=== PATIENT | male | born 1935 | race Caucasian/White ===

== ENCOUNTER 2018-06-24 07:59 | Emergency (ER) | payer MEDICARE ==
--- NOTE | 2018-06-24 08:09 | PDOC ---
History of Present Illness - General Chief Complaint: Pain Stated Complaint: KNEE PAIN Time Seen by Provider: 06/24/18 08:07 History Source: Patient Exam Limitations: No Limitations - History of Present Illness Initial Comments: CHIEF COMPLAINT: HISTORY OF PRESENT ILLNESS: Vital signs on arrival are within normal limits. REVIEW OF SYSTEMS: GENERAL/CONSTITUTIONAL: No fever MUSCULOSKELETAL: No joint or muscle swelling or pain. No neck or back pain. SKIN: No rash or easy bruising. NEUROLOGIC: No headache, vertigo, loss of consciousness, or loss of sensation. PHYSICAL EXAM: VITAL_SIGNS: within normal limits GENERAL_APPEARANCE: alert, cooperative, mild obvious discomfort. MENTAL_STATUS: speech clear, oriented X 3, responds appropriately to questions. NEURO: motor intact and sensory intact in injured extremity. EXTREMITIES: good pulse in injured extremity, affected area on extremity has mild erythema, mild swelling, mild tenderness and no abrasions\lacerations. SKIN: warm, dry, good color. Past History - Past Medical History Allergies/Adverse Reactions: Allergies Allergy/AdvReac Type Severity Reaction Status Date / Time No Known Allergies Allergy Verified 06/24/18 08:06 Home Medications: Ambulatory Orders Amlodipine Besylate [Norvasc -] 10 mg PO DAILY 10/21/13 Aspirin [ASA -] 81 mg PO DAILY 10/21/13 Carvedilol [Coreg] 25 mg PO BID 10/21/13 Levothyroxine [Synthroid -] 50 mcg PO DAILY 10/21/13 Losartan/Hydrochlorothiazide [Losartan-Hctz 100-25 mg Tab] 1 each PO DAILY 10/21 Simvastatin [Zocor -] 20 mg PO HS 10/21/13 metFORMIN XR [Glucophage Xr -] 500 mg PO DAILY 10/21/13 Meclizine HCl [Antivert -] 12.5 mg PO TID #21 tablet 10/22/13 COPD: No Diabetes: Yes HTN: Yes Hypercholesterolemia: Yes Thyroid Disease: Yes - Suicide/Smoking/Psychosocial Hx Smoking History: Never smoked Have you smoked in the past 12 months: No Hx Alcohol Use: No Drug/Substance Use Hx: No Substance Use Type: None Hx Substance Use Treatment: No *Physical Exam - Vital Signs Last Vital Signs Temp Pulse Resp BP Pulse Ox 98.6 F 76 18 141/63 99 06/24/18 08:00 06/24/18 08:00 06/24/18 08:00 06/24/18 08:00 06/24/18 08:00 Medical Decision Making - Medical Decision Making A/P: *DC/Admit/Observation/Transfer - Referrals Referrals: Scott Loya MD [Primary Care Provider] - - Patient Instructions - Post Discharge Activity
[2018-06-24 08:13] VITALS: BMI 21.6
--- NOTE | 2018-06-24 08:54 | PDOC ---
Attending Attestation - HPI HPI: 06/24/18 10:06 The patient is a 82 year old male with a significant PMH of hypertension, diabetes, and hypothyroidism who presents to the emergency department with left leg pain for 3 weeks. The patient reports that he was in bed last night when his left leg pain woke him up out of his sleep. He describes his pain as greater than 10/10 in severity and is worsened with walking. He states that he saw his PCP (Dr Loya) regarding this pain when it first onset by which he was prescribed medication and several tests were performed. The patient denies taking anything for pain. He denies any recent trauma, injury, travel or surgery. He denies any fever, chills, nausea, vomiting, diarrhea, constipation or urinary symptoms. He denies any chest pain, shortness of breath, headache or dizziness. The patient denies any other complaints. PCP: Dr. Loya Documentation prepared by Sixto Emerson, acting as medical doctor nuclear medicine for Rylie Yanes MD. <Sixto Emerson - Last Filed: 06/24/18 10:06> - Resident Resident Name: Rylie Garza - ED Attending Attestation I have performed the following: I have examined & evaluated the patient, The case was reviewed & discussed with the resident, I agree w/resident's findings & plan, Exceptions are as noted - Physicial Exam PE: GENERAL: Awake, alert, and fully oriented, in no acute distress HEAD: No signs of trauma EYES: PERRLA, EOMI, sclera anicteric, conjunctiva clear ENT: Auricles normal inspection, hearing grossly normal, nares patent, oropharynx clear without exudates. Moist mucosa NECK: Normal ROM, supple, no lymphadenopathy, JVD, or masses LUNGS: Breath sounds equal, clear to auscultation bilaterally. No wheezes, and no crackles HEART: Regular rate and rhythm, normal S1 and S2, no murmurs, rubs or gallops ABDOMEN: Soft, nontender, normoactive bowel sounds. No guarding, no rebound. No masses EXTREMITIES: Normal range of motion, no edema. No clubbing or cyanosis. No cords, erythema, or tenderness. Dec DP pulse on R, very faint DP pulse on L side. No pallor. Normal cap refill. NEUROLOGICAL: Cranial nerves II through XII grossly intact. Normal speech. Motor and sensation intact. SKIN: Warm, Dry, normal turgor, no rashes or lesions noted. - Medical Decision Making Pt presenting with claudication, worsening, now occurs with minimal ambulation. He had an arterial doppler as outpatient, results have not been given to Dr. Loya yet. Arterial doppler obtained in ED, signs of arterial disease. Will obtain CTA and d/w vascular. <Rylie Yanes - Last Filed: 06/24/18 12:45>
--- NOTE | 2018-06-24 08:56 | PDOC ---
History of Present Illness - General Chief Complaint: Pain Stated Complaint: KNEE PAIN Time Seen by Provider: 06/24/18 08:07 - History of Present Illness Initial Comments: 82yo with history of HTN, DM, HLD, and thyroid disorder presenting with left leg pain. Patient states the pain has been going on for three weeks and has gradually gotten worse to the point that it woke him up from his sleep at 2am this morning. The pain is rated 11/10 and worsens when the patient moves his legs or ambulates a couple steps. He saw his primary care physician, Dr. Loya , three weeks ago who ordered an ultrasound test. The patient received a call that a follow-up test was required and that he should go to the office on Monday, but was not informed of the ultrasound result. He was also started on Baclofen 10mg which he has been taking and says does not work. Patient has not taken anything else for pain. No hemoptysis, no recent surgical history, no recent mobilization, no hormone use, no history of DVT or PE. Denies history of gout. He is not sure if he has arthritis. Has never seen a vascular specialist. No fevers, chills, chest pain, or abdominal pain. Past History - Past Medical History Allergies/Adverse Reactions: Allergies Allergy/AdvReac Type Severity Reaction Status Date / Time No Known Allergies Allergy Verified 06/24/18 08:06 Home Medications: Ambulatory Orders Amlodipine Besylate [Norvasc -] 10 mg PO DAILY 10/21/13 Aspirin [ASA -] 81 mg PO DAILY 10/21/13 Carvedilol [Coreg] 25 mg PO BID 10/21/13 Levothyroxine [Synthroid -] 88 mcg PO DAILY 10/21/13 metFORMIN XR [Glucophage Xr -] 500 mg PO DAILY 10/21/13 Atorvastatin Ca [Lipitor] 40 mg PO HS 06/24/18 Baclofen [Lioresal -] 10 mg PO DAILY 06/24/18 Calcium Citrate [Calcitrate] 950 mg PO DAILY 06/24/18 Cetirizine HCl [Zyrtec -] 10 mg PO DAILY 06/24/18 Clopidogrel Bisulfate [Plavix -] 75 mg PO DAILY 06/24/18 Ergocalciferol (Vitamin D2) [Drisdol] 50,000 unit PO WEEKLY 06/24/18 Fluticasone Prop 0.05% Nasal [Flonase -] 1 - 2 spray NS DAILY 06/24/18 Olmesartan/Hydrochlorothiazide [Olmesartan-Hctz 40-12.5 mg Tab] 1 each PO DAILY 06/24/18 Pitavastatin Calcium [Livalo] 4 mg PO DAILY 06/24/18 Vitamin B Complex 1 each PO DAILY 06/24/18 COPD: No Diabetes: Yes HTN: Yes Hypercholesterolemia: Yes Thyroid Disease: Yes - Suicide/Smoking/Psychosocial Hx Smoking History: Never smoked Have you smoked in the past 12 months: No Hx Alcohol Use: No Drug/Substance Use Hx: No Substance Use Type: None Hx Substance Use Treatment: No Review of Systems - Review of Systems Comments:: Constitutional: no fever, no chills HEENT: no throat pain, no dysphagia Cardiovascular: no chest pain, no palpitations Respiratory: no cough, no shortness of breath Gastrointestinal: no abdominal pain, no nausea, no vomiting, no diarrhea, no constipation Genitourinary: no dysuria, no frequency Musculoskeletal: no right leg pain, +left leg pain Skin: no rash, no itching Neurologic: no headache, no dizziness *Physical Exam - Vital Signs Last Vital Signs Temp Pulse Resp BP Pulse Ox 98.6 F 76 18 141/63 99 06/24/18 08:00 06/24/18 08:00 06/24/18 08:00 06/24/18 08:00 06/24/18 08:00 - Physical Exam Comments: General: Awake, alert, and fully oriented, in no acute distress Head: No signs of trauma Eyes: EOMI, sclera anicteric ENT: Moist mucus membranes Neck: Normal ROM, supple Lungs: Lungs clear, Normal breath sounds Cardio: Regular rhythm, S1 and S2 present Abdomen: Soft, nontender. No guarding, no rebound, no masses Extremities: Normal range of motion; Distal pulses present, though difficult to palpate on the left; no cords or tenderness; no rashes, wounds, or edema SKIN: Warm, Dry, normal turgor Neurologic: Cranial nerves II through XII grossly intact. Normal speech ED Treatment Course - LABORATORY CBC & Chemistry Diagram: 06/24/18 10:21 06/24/18 10:21 Medical Decision Making - Medical Decision Making 82yo with history of HTN, DM, HLD, and thyroid disorder presenting with left leg pain. -DDX includes but not limited to PVD, PAD, DVT, MSK, osteoarthritis -Patient given 1g ofirmev: reports palliation of pain, now 0/10 -Labs: no leukocytosis or anemia -Arterial doppler: "1. Diffuse atherosclerotic disease involving both lower extremity arterial systems. 2. Abnormal waveform patterns involving multiple bilateral arterial vessels, indicating hemodynamically significant stenosis. MRA of the lower extremities can be considered for further evaluation." -CTA of left leg: "Left lower extremity: Moderate atherosclerotic calcific and noncalcific plaque is seen involving the proximal left common iliac artery. Milder calcific plaque is seen in the distal portion. Moderate calcific plaque is identified involving the proximal left internal iliac artery. There is a tight, short segment stenosis involving this vessel for approximately 0.6 cm in length. Other, more distal calcific plaque is seen involving this vessel, creating poorly defined tight stenoses. Small to moderate calcific plaque is noted involving the proximal left external iliac artery. A significant amount of calcific plaque is identified involving the proximal left common femoral artery, with a tight, short segment stenosis present. The left profunda femoris artery is unremarkable. -Discussed case with Dr. Simpson, vascular specialist. Since patient's pain is currently controlled and he is not being admitted, he will be able to see patient in clinic. -Discharged. Patient and family members amenable to plan. *DC/Admit/Observation/Transfer Diagnosis at time of Disposition: Peripheral artery disease - Discharge Dispostion Disposition: HOME Condition at time of disposition: Stable - Referrals Referrals: Scott Loya MD [Primary Care Provider] - Elpidio Simpson MD [Staff Physician] - - Patient Instructions Printed Discharge Instructions: Peripheral Artery Disease Additional Instructions: You came to the ED for left leg pain. Imaging studies show that this is most likely due to narrowing of your arteries, a condition called Peripheral Artery Disease. You can take tylenol for your pain. Follow the instructions on the medication bottle. We spoke with our vascular specialist, Dr. Simpson, who is able to see you in clinic. Call and make an appointment at the number provided. RETURN if: you develop worsening pain, fever, weakness, incontinence, you pass out, or have any other new or concerning symptoms === Usted vino a la mirela de emergencias por dolor en la pierna izquierda. Los estudios de imgenes muestran que es ms probable que esto se deba al estrechamiento de las arterias, itzel afeccin denominada enfermedad de la arteria perifrica. Puedes frandy tylenol para tu dolor. Siga las instrucciones en el envase del medicamento. Hablamos con nuestro especialista vascular, el Dr. Simpson, quien puede verlo en la clnica. Llame y nelly itzel moisés en el nmero proporcionado. REGRESAR si: usted presenta un empeoramiento del dolor, fiebre, debilidad, incontinencia, se desmaya, o tiene cualquier otro sntoma nuevo o relacionado con l. - Post Discharge Activity
[2018-06-24] MEDS ORDERED: ACETAMINOPHEN 1000 MG/100 ML VIAL (NON FORMULARY) IVPB ONE (09:59)
[2018-06-24] MEDS ORDERED: ACETAMINOPHEN INJECTION 100 ML IVPB ONE (10:14)
[2018-06-24 10:29] LABS: BASO % 0.7 % (0-2.0); EOS % 0.7 % (0-4.5); HEMOGLOBIN 13.8 GM/dL (11.7-16.9); LYMPH % 26.2 % (8-40); MCH 30.4 pg (25.7-33.7); MCHC 33.6 g/dl (32.0-35.9); MEAN CELL VOLUME 90.7 fl (80-96); MEAN PLT VOLUME 9.9 fl (7.5-11.1); MONO % 10.2 % (3.8-10.2); NEUT % 62.2 % (42.8-82.8); PLATELET COUNT 246 K/MM3 (134-434); RBC 4.52 M/mm3 (4.00-5.60); RDW 13.9 % (11.9-15.9); WHITE BLOOD COUNT 6.4 K/mm3 (4.0-10.0)
[2018-06-24 11:24] LABS: ALBUMIN 3.6 g/dl (3.4-5.0); ALK PHOS 89 U/L (45-117); ANION GAP 8 MMOL/L (8-16); BILIRUBIN,TOTAL 0.5 mg/dL (0.2-1); BLOOD UREA NITROGEN 25 mg/dL (7-18); CALCIUM 8.9 mg/dL (8.5-10.1); CHLORIDE 102 mmol/L (98-107); CO2 26 mmol/L (21-32); CREATININE 1.2 mg/dL (0.55-1.3); GLUCOSE,RANDOM 131 mg/dL (74-106); POTASSIUM 5.2 mmol/L (3.5-5.1); SGOT/AST 44 U/L (15-37); SGPT/ALT 23 U/L (13-61); SODIUM 137 mmol/L (136-145); TOT PROT 7.9 g/dl (6.4-8.2)
[2018-06-24] MEDS ORDERED: SODIUM CHLORIDE 1,000 ML IV STA (11:36)
[2018-06-24 14:54] VITALS: BP 119/60; PULSE 60; TEMP 97.9
== END 2018-06-24 15:40 | disposition home or self-care (01) ==
LOC: JER 07:59
PROC: 3E0337Z Introduction of Electrolytic and Water Balance Substance into Peripheral Vein, Percutaneous Approach (ICD-10-PCS; principal; 2018-06-24)
PROC: 3E033NZ Introduction of Analgesics, Hypnotics, Sedatives into Peripheral Vein, Percutaneous Approach (ICD-10-PCS; 2018-06-24)
DX: I73.9 Peripheral vascular disease, unspecified (principal); I10 Essential (primary) hypertension; E11.9 Type 2 diabetes mellitus without complications; Z79.84 Long term (current) use of oral hypoglycemic drugs; E78.00 Pure hypercholesterolemia, unspecified; E03.9 Hypothyroidism, unspecified
CPT/HCPCS: 36415; 73706-TC-RT; 80053; 85025; 93925-TC; 96361; 96374; 99282-25; J0131; J7030

== ENCOUNTER 2023-07-28 14:06 | Inpatient (IN) | payer OTHER ==
[2023-07-28 16:56] LABS: BASO % 1.1 % (0-2.0); HEMATOCRIT 40.6 % (35.4-49); HEMOGLOBIN 13.3 GM/dL (11.7-16.9); LYMPH % 30.9 % (8-40); MCH 30.5 pg (25.7-33.7); MCHC 32.8 g/dl (32.0-35.9); MEAN CELL VOLUME 92.8 fl (80-96); MEAN PLT VOLUME 9.3 fl (7.5-11.1); MONO % 9.9 % (3.8-10.2); NEUT % 57.1 % (42.8-82.8); PLATELET COUNT 187 10^3/uL (134-434); RBC 4.38 M/mm3 (4.00-5.60); RDW 14.7 % (11.9-15.9); WHITE BLOOD COUNT 5.9 K/mm3 (4.0-10.0)
[2023-07-28 17:09] LABS: POTASSIUM 3.8 mmol/L (3.5-5.1)
[2023-07-28 17:11] LABS: CALCIUM 8.8 mg/dL (8.5-10.1)
[2023-07-28 17:12] LABS: ALBUMIN 3.4 g/dl (3.4-5.0); BLOOD UREA NITROGEN 18.9 mg/dL (7-18)
[2023-07-28 17:15] LABS: CREATININE 0.9 mg/dL (0.55-1.3)
[2023-07-28 17:16] LABS: TOT PROT 6.9 g/dl (6.4-8.2); URINE APPEARANCE CLEAR; URINE BILIRUBIN NEGATIVE (NEGATIVE); URINE COLOR YELLOW; URINE GLUCOSE (UA) NEGATIVE (NEGATIVE); URINE KETONE NEGATIVE (NEGATIVE); URINE LEUK ESTERASE NEGATIVE (NEGATIVE); URINE NITRITE NEGATIVE (NEGATIVE); URINE PROTEIN NEGATIVE (NEGATIVE)
[2023-07-28 17:17] LABS: BILIRUBIN,TOTAL 0.3 mg/dL (0.2-1)
[2023-07-28] MEDS: D5-1/2NS+20 MEQ KCL - 20 MEQ/1,000 ML INFUS.BAG IV SCH (17:40)
[2023-07-28] MEDS: HEPARIN NA (PORCINE) 5,000 UNITS/ML 1ML VIAL SQ SCH (23:00)
[2023-07-28 23:13] VITALS: BMI 20.9
[2023-07-29 09:09] LABS: BASO % 1.1 % (0-2.0); HEMATOCRIT 40.5 % (35.4-49); HEMOGLOBIN 13.4 GM/dL (11.7-16.9); LYMPH % 37.4 % (8-40); MCHC 33.1 g/dl (32.0-35.9); MEAN CELL VOLUME 93.7 fl (80-96); MEAN PLT VOLUME 9.9 fl (7.5-11.1); MONO % 11.3 % (3.8-10.2); NEUT % 49.2 % (42.8-82.8); PLATELET COUNT 175 10^3/uL (134-434); RBC 4.33 M/mm3 (4.00-5.60); RDW 14.3 % (11.9-15.9); WHITE BLOOD COUNT 4.7 K/mm3 (4.0-10.0)
[2023-07-29 09:13] LABS: POTASSIUM 4.1 mmol/L (3.5-5.1)
[2023-07-29] MEDS: HEPARIN NA (PORCINE) 5,000 UNITS/ML 1ML VIAL SQ SCH ×2 (09:26→22:13)
[2023-07-29] MEDS: PANTOPRAZOLE 20 MG TABLET PO SCH (09:26)
[2023-07-29 09:31] LABS: ALBUMIN 3.2 g/dl (3.4-5.0); BLOOD UREA NITROGEN 16.9 mg/dL (7-18); CALCIUM 8.9 mg/dL (8.5-10.1)
[2023-07-29 09:34] LABS: CREATININE 0.9 mg/dL (0.55-1.3)
[2023-07-29 09:36] LABS: BILIRUBIN,TOTAL 0.4 mg/dL (0.2-1); TOT PROT 6.5 g/dl (6.4-8.2)
[2023-07-29] MEDS: amLODIPine BESYLATE 5 MG TABLET (FP) PO SCH (12:32)
[2023-07-29] MEDS ORDERED: LORazepam 1 MG TABLET PO ONE (16:59)
[2023-07-29] MEDS ORDERED: LORazepam 1 MG TABLET ONE (16:59)
[2023-07-29] MEDS ORDERED: LORazepam 2 MG/ML SDV VIAL IM ONE (17:07)
[2023-07-29] MEDS ORDERED: HALOPERIDOL LACTATE 5 MG/ML IM ONE (19:37)
[2023-07-29] MEDS: D5-1/2NS+20 MEQ KCL - 20 MEQ/1,000 ML INFUS.BAG IV SCH (20:24)
[2023-07-30] MEDS: amLODIPine BESYLATE 5 MG TABLET (FP) PO SCH (09:07)
[2023-07-30] MEDS: HEPARIN NA (PORCINE) 5,000 UNITS/ML 1ML VIAL SQ SCH ×2 (09:07→21:15)
[2023-07-30] MEDS: PANTOPRAZOLE 20 MG TABLET PO SCH (09:07)
[2023-07-30] MEDS: LEVOTHYROXINE NA 88 MCG TABLET (FP) PO SCH (18:22)
[2023-07-30] MEDS: LORazepam 1 MG TABLET PO PRN (18:44)
[2023-07-30] MEDS: D5-1/2NS+20 MEQ KCL - 20 MEQ/1,000 ML INFUS.BAG IV SCH (18:47)
[2023-07-31] MEDS: LEVOTHYROXINE NA 88 MCG TABLET (FP) PO SCH (06:50)
[2023-07-31] MEDS: LORazepam 1 MG TABLET PO PRN ×2 (09:27→21:30)
[2023-07-31] MEDS: amLODIPine BESYLATE 5 MG TABLET (FP) PO SCH (09:27)
[2023-07-31] MEDS: HEPARIN NA (PORCINE) 5,000 UNITS/ML 1ML VIAL SQ SCH ×2 (09:28→21:30)
[2023-07-31] MEDS: PANTOPRAZOLE 20 MG TABLET PO SCH (09:28)
[2023-07-31] MEDS: D5-1/2NS+20 MEQ KCL - 20 MEQ/1,000 ML INFUS.BAG IV SCH (19:58)
[2023-07-31] MEDS: OLANZapine 2.5 MG TABLET PO SCH (21:30)
[2023-08-01] MEDS: LEVOTHYROXINE NA 88 MCG TABLET (FP) PO SCH (06:42)
[2023-08-01] MEDS: OLANZapine 2.5 MG TABLET PO SCH ×2 (08:45→23:09)
[2023-08-01] MEDS: amLODIPine BESYLATE 5 MG TABLET (FP) PO SCH (09:06)
[2023-08-01] MEDS: PANTOPRAZOLE 20 MG TABLET PO SCH (09:06)
[2023-08-01] MEDS: HEPARIN NA (PORCINE) 5,000 UNITS/ML 1ML VIAL SQ SCH ×2 (09:06→23:09)
[2023-08-01] MEDS: LORazepam 1 MG TABLET PO PRN ×3 (13:22→23:09)
[2023-08-01] MEDS: D5-1/2NS+20 MEQ KCL - 20 MEQ/1,000 ML INFUS.BAG IV SCH (23:10)
[2023-08-02] MEDS: LEVOTHYROXINE NA 88 MCG TABLET (FP) PO SCH (06:02)
[2023-08-02] MEDS: amLODIPine BESYLATE 5 MG TABLET (FP) PO SCH (09:29)
[2023-08-02] MEDS: HEPARIN NA (PORCINE) 5,000 UNITS/ML 1ML VIAL SQ SCH ×2 (09:29→21:34)
[2023-08-02] MEDS: PANTOPRAZOLE 20 MG TABLET PO SCH (09:29)
[2023-08-02] MEDS ORDERED: FLU VACCINE (FLULAVAL) PF 60 MCG/0.5 ML SYRINGE 2023-2024 IM ONE (10:00)
[2023-08-02] MEDS: LORazepam 1 MG TABLET PO PRN ×2 (10:41→21:34)
[2023-08-02] MEDS: OLANZapine 2.5 MG TABLET PO SCH ×2 (10:45→20:30)
[2023-08-02] MEDS: D5-1/2NS+20 MEQ KCL - 20 MEQ/1,000 ML INFUS.BAG IV SCH (21:45)
[2023-08-02] MEDS ORDERED: DONEPEZIL HCL 5 MG TABLET (FP) PO SCH (22:00)
[2023-08-03 07:47] VITALS: BP 118/76; PULSE 100; RESP 17; TEMP 98
[2023-08-03] MEDS: LEVOTHYROXINE NA 88 MCG TABLET (FP) PO SCH (08:00)
[2023-08-03] MEDS: OLANZapine 2.5 MG TABLET PO SCH (09:31)
[2023-08-03] MEDS: PANTOPRAZOLE 20 MG TABLET PO SCH (09:31)
[2023-08-03] MEDS: amLODIPine BESYLATE 5 MG TABLET (FP) PO SCH (09:31)
[2023-08-03] MEDS: HEPARIN NA (PORCINE) 5,000 UNITS/ML 1ML VIAL SQ SCH (09:32)
== END 2023-08-03 17:39 | DRG 884 ==
LOC: JER 14:06 → JERBED 16:01 → J5S 20:06
PROVIDERS: ADMIT Family Medicine; ATTEND Family Medicine
DX: F03.918 Unspecified dementia, unspecified severity, with other behavioral disturbance (principal); E11.51 Type 2 diabetes mellitus with diabetic peripheral angiopathy without gangrene; I10 Essential (primary) hypertension; E78.5 Hyperlipidemia, unspecified; E03.9 Hypothyroidism, unspecified; R41.82 Altered mental status, unspecified
CPT/HCPCS: 0241U-QW; 36415; 70450-TC; 71045-TC-FY; 80053; 81003; 82962; 83036; 83735; 84443; 84484; 85025; 87086; 87635; 90686; 93005; 93010; 97116-GP; 97161-GP; 99285-25; G0008; J1644